=== PATIENT | female | born 1990 | race Caucasian/White ===

== ENCOUNTER 2019-05-04 12:11 | Emergency (ER) | payer BC ==
[~2019-05-04] VITALS: Ht 154.9 cm; Wt 55.5 kg
[~2019-05-04 12:11] MED LIST: ACET1TAB40 PO; ACET500T98 PO; IBUP-1542 PO; IBUP-1544 PO; MAGN2400 PO; ONDA4TAB14 PO
[2019-05-04 12:32] VITALS: Ht 154.9 cm; Wt 55.5 kg
[2019-05-04] MEDS ORDERED: SOD CHLORIDE 0.9% 1,000 ML IV STA (13:33)
[2019-05-04] MEDS ORDERED: ONDANSETRON 4 MG INJ IV STA (13:33)
[2019-05-04] MEDS ORDERED: MECLIZINE 12.5 MG TAB PO ONE (14:00)
[2019-05-04] MEDS ORDERED: LORAZEPAM 2 MG INJ IV ONE (14:00)
[2019-05-04 15:22] VITALS: BP 117/67; PULSE 78; RESP 16
== END 2019-05-04 15:22 | disposition home or self-care (01) ==
LOC: FTE 12:11
DX: R42 Dizziness and giddiness (principal)
CPT/HCPCS: 36415; 80053; 81001; 81025; 85025; 96374; 96375; 99284; J2060; J2405; J7030; Z7610